=== PATIENT | female | born 1980 | race Caucasian/White ===

== ENCOUNTER 2018-02-22 09:25 | Emergency (ER) | payer MEDICAID ==
--- NOTE | 2018-02-22 09:46 | Emergency Department Record ---
History of Present Illness - General Chief Complaint: Ankle/Foot Injury Stated Complaint: RT ANKLE INJURY Time Seen by Provider: 02/22/18 09:41 Source: Patient, RN notes reviewed Mode of Arrival: Ambulatory - History of Present Illness Initial Comments: patient twisted right ankle and fell 2 daysa go and it swelled and she has been walking on it. No other injuries MD Complaint: Ankle injury Onset/Timin -: Days(s) Type of Injury: Other Place: Home Severity: Moderate Severity scale (1-10): 8 Improves With: Nothing Worsens With: Nothing, Weight bearing Associated Symptoms: Swelling, Ambulatory - Related Data Previous Rx's Medication Instructions Recorded Naproxen [Naprosyn] 500 mg PO BID #20 tablet 02/22/18 Allergies Allergy/AdvReac Type Severity Reaction Status Date / Time amoxicillin [Amoxicillin] Allergy Intermediate HIVES Unverified 04/02/16 10:20 rofecoxib [From Vioxx] Allergy Intermediate HIVES Unverified 04/02/16 10:20 venlafaxine HCl Allergy Intermediate VOMITING Unverified 04/02/16 10:20 [From Effexor] Travel Screening - Travel/Exposure Within Last 30 Days Have you traveled within the last 30 days?: No Review of Systems Reviewed: No additional complaints except as noted below Constitutional: Reports: As per HPI. Denies: Chills, Fever, Malaise, Night sweats, Weakness, Weight change Eyes: Reports: As per HPI. Denies: Eye discharge, Eye pain, Photophobia, Vision change ENT: Reports: As per HPI. Denies: Congestion, Dental pain, Ear pain, Epistaxis , Hearing loss, Throat pain Respiratory: Reports: As per HPI. Denies: Cough, Dyspnea, Hemoptysis, Stridor, Wheezes Cardiovascular: Reports: As per HPI. Denies: Arrhythmia, Chest pain, Dyspnea on exertion, Edema, Murmurs, Orthopnea, Palpitations, Paroxysmal nocturnal dyspnea, Rheumatic Fever, Syncope Endocrine: Reports: As per HPI. Denies: Fatigue, Heat or cold intolerance, Polydipsia, Polyuria Gastrointestinal: Reports: As per HPI. Denies: Abdominal pain, Constipation, Diarrhea, Hematemesis, Hematochezia, Melena, Nausea, Vomiting Genitourinary: Reports: As per HPI. Denies: Abnormal menses, Discharge, Dyspareunia, Dysuria, Frequency, Hematuria, Incontinence, Retention, Urgency Musculoskeletal: Reports: As per HPI. Denies: Arthralgia, Back pain, Gout, Joint swelling, Myalgia, Neck pain Skin: Reports: As per HPI. Denies: Bruising, Change in color, Change in hair/ nails, Lesions, Pruritus, Rash Neurological: Reports: As per HPI. Denies: Abnormal gait, Confusion, Headache, Numbness, Paresthesias, Seizure, Tingling, Tremors, Vertigo, Weakness Psychiatric: Reports: As per HPI. Denies: Anxiety, Auditory hallucinations, Depression, Homicidal thoughts, Suicidal thoughts, Visual hallucinations Hematological/Lymphatic: Reports: As per HPI. Denies: Anemia, Blood Clots, Easy bleeding, Easy bruising, Swollen glands Past Medical History - SOCIAL HISTORY Smoking Status: Heavy tobacco smoker (>10/day) - RESPIRATORY Hx Respiratory Disorders: Yes Hx Asthma: Yes - CARDIOVASCULAR Hx Cardio Disorders: Yes Hx Hypertension: Yes - NEURO Hx Neuro Disorders: No - GI Hx GI Disorders: Yes Hx Reflux: Yes - Hx Genitourinary Disorders: No - ENDOCRINE Hx Endocrine Disorders: No - MUSCULOSKELETAL Hx Musculoskeletal Disorders: Yes Hx Back Injury: Yes - PSYCH Hx Psych Problems: Yes Hx Anxiety: Yes Hx Depression: Yes - HEMATOLOGY/ONCOLOGY Hx Hematology/Oncology Disorders: No Family Medical History Any Significant Family History?: Yes Hx Diabetes: Father, Mother, Grandparents Hx HTN: Father, Mother, Grandparents Hx Stroke: Grandparents Physical Exam - General General Appearance: Alert, Oriented x3, Cooperative, Mild distress - Head Head exam: Normal inspection - Eye Eye exam: Normal appearance, PERRL Pupils: Normal accommodation - ENT ENT exam: Normal exam, Mucous membranes moist, Normal external ear exam, Normal orophraynx, TM's normal bilaterally Ear exam: Normal external inspection. negative: External canal tenderness Nasal Exam: Normal inspection. negative: Discharge, Sinus tenderness Mouth exam: Normal external inspection, Tongue normal Teeth exam: Normal inspection. negative: Dental caries Throat exam: Normal inspection. negative: Tonsillar erythema, Tonsillar exudate - Neck Neck exam: Normal inspection, Full ROM. negative: Tenderness - Respiratory Respiratory exam: Normal lung sounds bilaterally. negative: Respiratory distress - Cardiovascular Cardiovascular Exam: Regular rate, Normal rhythm, Normal heart sounds - GI/Abdominal GI/Abdominal exam: Soft, Normal bowel sounds. negative: Tenderness - Rectal Rectal exam: Deferred - exam: Deferred - Extremities Extremities exam: Joint swelling, Normal capillary refill, Tenderness (right ankle pain) - Back Back exam: Reports: Normal inspection, Full ROM. Denies: Muscle spasm, Rash noted, Tenderness - Neurological Neurological exam: Alert, Normal gait, Oriented X3, Reflexes normal - Psychiatric Psychiatric exam: Normal affect, Normal mood - Skin Skin exam: Dry, Intact, Normal color, Warm Course Vital Signs 02/22/18 09:32 Temperature 98.3 F Pulse Rate 79 Respiratory 20 Rate Blood Pressure 143/96 Pulse Ox 96 Medical Decision Making - Data Complexity MDM Data: X-Ray Ordered and/or Reviewed (xray negative, some degenerative changes) Disposition Clinical Impression: Sprain of ankle Qualifiers: Encounter type: initial encounter Involved ligament of ankle: anterior talofibular ligament Laterality: right Qualified Code(s): S93.491A - Sprain of other ligament of right ankle, initial encounter Disposition: Home, Self-Care Condition: (1) Good Instructions: Ankle Sprain (ED) Additional Instructions: follow up with family Dr in 6 to 10 days Prescriptions: Naproxen [Naprosyn] 500 mg PO BID #20 tablet Forms: Patient Portal Access Time of Disposition: 10:36 Quality - Quality Measures Quality Measures: N/A - Blood Pressure Screening Does Patient Have Any of the Following: No Blood Pressure Classification: Hypertensive Reading Systolic Measurement: 143 Diastolic Measurement: 96 Screening for High Blood Pressure: < Pre-Hypertensive BP, F/U Documented > [ G8950] Pre-Hypertensive Follow-up Interventions: Referral to alternative/primary care provider.
--- NOTE | 2018-02-23 09:01 | RADIOLOGY REPORT ---
EXAM: RIGHT ANKLE HISTORY: INJURY. TECHNIQUE: Three views of the right ankle were performed. FINDINGS: No evidence of fracture or dislocation. There is severe soft tissue swelling. There is a small calcaneal spur. IMPRESSION: NO EVIDENCE OF ACUTE FRACTURE OR DISLOCATION. THERE IS SEVERE SOFT TISSUE SWELLING. JOB NUMBER: [id number] [facility]
== END 2018-02-22 10:44 | disposition home or self-care (01) ==
LOC: ER 09:25
DX: S93.491A Sprain of other ligament of right ankle, initial encounter (principal); X50.1XXA Overexertion from prolonged static or awkward postures, initial encounter; Y92.009 Unspecified place in unspecified non-institutional (private) residence as the place of occurrence of the external cause; F17.210 Nicotine dependence, cigarettes, uncomplicated; I10 Essential (primary) hypertension
CPT/HCPCS: 99283

== ENCOUNTER 2018-11-01 09:28 | Emergency (ER) | payer MEDICAID ==
--- NOTE | 2018-11-01 09:40 | Emergency Department Record ---
History of Present Illness - General Chief Complaint: Cough Stated Complaint: COUGH Time Seen by Provider: 11/01/18 09:31 Source: Patient, RN notes reviewed Mode of Arrival: Ambulatory - History of Present Illness MD Complaint: Cough, Nasal congestion, Sore throat Onset/Timin -: Days(s) Severity scale (1-10): 5 Consistency: Constant - Related Data Previous Rx's Medication Instructions Recorded Azithromycin 250 mg PO DAILY #6 tablet 11/01/18 Prednisone [Prednisone 10Mg] 10 mg PO ASDIR #30 tab 11/01/18 Allergies Allergy/AdvReac Type Severity Reaction Status Date / Time amoxicillin [Amoxicillin] Allergy Intermediate HIVES Unverified 04/02/16 10:20 rofecoxib [From Vioxx] Allergy Intermediate HIVES Unverified 04/02/16 10:20 venlafaxine HCl Allergy Intermediate VOMITING Unverified 04/02/16 10:20 [From Effexor] Travel Screening - Travel/Exposure Within Last 30 Days Have you traveled within the last 30 days?: No Review of Systems Reviewed: No additional complaints except as noted below Constitutional: Reports: As per HPI. Denies: Chills, Fever, Malaise, Night sweats, Weakness, Weight change Eyes: Reports: As per HPI. Denies: Eye discharge, Eye pain, Photophobia, Vision change ENT: Reports: As per HPI, Congestion, Throat pain. Denies: Dental pain, Ear pain, Epistaxis, Hearing loss Respiratory: Reports: As per HPI, Cough, Wheezes. Denies: Dyspnea, Hemoptysis, Stridor Cardiovascular: Reports: As per HPI. Denies: Arrhythmia, Chest pain, Dyspnea on exertion, Edema, Murmurs, Orthopnea, Palpitations, Paroxysmal nocturnal dyspnea, Rheumatic Fever, Syncope Endocrine: Reports: As per HPI. Denies: Fatigue, Heat or cold intolerance, Polydipsia, Polyuria Gastrointestinal: Reports: As per HPI. Denies: Abdominal pain, Constipation, Diarrhea, Hematemesis, Hematochezia, Melena, Nausea, Vomiting Genitourinary: Reports: As per HPI. Denies: Abnormal menses, Discharge, Dyspareunia, Dysuria, Frequency, Hematuria, Incontinence, Retention, Urgency Musculoskeletal: Reports: As per HPI. Denies: Arthralgia, Back pain, Gout, Joint swelling, Myalgia, Neck pain Skin: Reports: As per HPI. Denies: Bruising, Change in color, Change in hair/nails, Lesions, Pruritus, Rash Neurological: Reports: As per HPI. Denies: Abnormal gait, Confusion, Headache, Numbness, Paresthesias, Seizure, Tingling, Tremors, Vertigo, Weakness Psychiatric: Reports: As per HPI. Denies: Anxiety, Auditory hallucinations, Depression, Homicidal thoughts, Suicidal thoughts, Visual hallucinations Hematological/Lymphatic: Reports: As per HPI. Denies: Anemia, Blood Clots, Easy bleeding, Easy bruising, Swollen glands Past Medical History - SOCIAL HISTORY Smoking Status: Heavy tobacco smoker (>10/day) - RESPIRATORY Hx Respiratory Disorders: Yes Hx Asthma: Yes Hx COPD: Yes - CARDIOVASCULAR Hx Cardio Disorders: Yes Hx Hypertension: Yes - NEURO Hx Neuro Disorders: No - GI Hx GI Disorders: Yes Hx Reflux: Yes - Hx Genitourinary Disorders: No - ENDOCRINE Hx Endocrine Disorders: No - MUSCULOSKELETAL Hx Musculoskeletal Disorders: Yes Hx Back Injury: Yes - PSYCH Hx Psych Problems: Yes Hx Anxiety: Yes Hx Depression: Yes - HEMATOLOGY/ONCOLOGY Hx Hematology/Oncology Disorders: No Family Medical History Any Significant Family History?: Yes Hx Diabetes: Father, Mother, Grandparents Hx HTN: Father, Mother, Grandparents Hx Stroke: Grandparents Physical Exam - General General Appearance: Alert, Oriented x3, Cooperative, No acute distress - Head Head exam: Normal inspection - Eye Eye exam: Normal appearance, PERRL Pupils: Normal accommodation - ENT ENT exam: Normal exam, Mucous membranes moist, Normal external ear exam, Normal orophraynx, TM's normal bilaterally Ear exam: Normal external inspection. negative: External canal tenderness Nasal Exam: Normal inspection. negative: Discharge, Sinus tenderness Mouth exam: Normal external inspection, Tongue normal Teeth exam: Normal inspection. negative: Dental caries Throat exam: Normal inspection. negative: Tonsillar erythema, Tonsillar exudate - Neck Neck exam: Normal inspection, Full ROM. negative: Tenderness - Respiratory Respiratory exam: Normal lung sounds bilaterally, Other (wheezy cough). negative: Respiratory distress - Cardiovascular Cardiovascular Exam: Regular rate, Normal rhythm, Normal heart sounds - GI/Abdominal GI/Abdominal exam: Soft, Normal bowel sounds. negative: Tenderness - Rectal Rectal exam: Deferred - exam: Deferred - Extremities Extremities exam: Normal inspection, Full ROM, Normal capillary refill. negative: Tenderness - Back Back exam: Reports: Normal inspection, Full ROM. Denies: Muscle spasm, Rash noted, Tenderness - Neurological Neurological exam: Alert, Normal gait, Oriented X3, Reflexes normal - Psychiatric Psychiatric exam: Normal affect, Normal mood - Skin Skin exam: Dry, Intact, Normal color, Warm Course Vital Signs 11/01/18 09:31 Temperature 98 F Pulse Rate 83 Respiratory 18 Rate Blood Pressure 144/106 Pulse Ox 98 - Reevaluation(s) Reevaluation #1: off work today 11/01/18 09:54 Disposition Clinical Impression: Bronchitis Disposition: Home, Self-Care Condition: (1) Good Instructions: Acute Bronchitis (ED), COPD (Chronic Obstructive Pulmonary Disease) (ED) Additional Instructions: fluids stop cigs use inhalers start azithromycin follow up with family dr in 3 days Prescriptions: Azithromycin 250 mg PO DAILY #6 tablet Prednisone [Prednisone 10Mg] 10 mg PO ASDIR #30 tab Forms: Patient Portal Access Time of Disposition: 09:54 Quality - Quality Measures Quality Measures: N/A - Blood Pressure Screening Does Patient Have Any of the Following: No Blood Pressure Classification: Hypertensive Reading Systolic Measurement: 144 Diastolic Measurement: 106 Screening for High Blood Pressure: < First Hypertensive BP, F/U Documented > [ G8950] Pre-Hypertensive Follow-up Interventions: Referral to alternative/primary care provider. First Hypertensive Follow-up Interventions: Referral to alternative/primary care provider.
[2018-11-01] MEDS ORDERED: METHYLPREDNISOLONE 80MG/VIAL IM ONE (09:46)
[2018-11-01] MEDS ORDERED: AZITHROMYCIN 500 MG TABLET PO ONE (09:47)
== END 2018-11-01 10:24 | disposition home or self-care (01) ==
LOC: ER 09:28
DX: J20.9 Acute bronchitis, unspecified (principal); J44.9 Chronic obstructive pulmonary disease, unspecified; I10 Essential (primary) hypertension; F17.210 Nicotine dependence, cigarettes, uncomplicated
CPT/HCPCS: 87880; 96372; 99284; J1040

== ENCOUNTER 2019-05-06 09:19 | Emergency (ER) | payer MEDICAID ==
[2019-05-06] MEDS ORDERED: METHYLPREDNISOLONE PF 125MG/VIAL IM ONE (09:36)
--- NOTE | 2019-05-06 09:39 | Emergency Department Record ---
History of Present Illness - General Chief Complaint: Cough Stated Complaint: COUGHING Time Seen by Provider: 05/06/19 09:31 Source: Patient Mode of Arrival: Ambulatory Limitations: No limitations - History of Present Illness Initial Comments: The patient is here due to a worsening cough and congestion over the last 5 days. She has had some SOB at times which is worse at night. The patient denies any fever, sputum production, CP, RODRIGUEZ, or vomiting. She does have a hx of COPD and does use a Nebulizer at home. MD Complaint: Cough, Rhinorrhea Onset/Timin -: Days(s) - Related Data Home Medications Medication Instructions Recorded Confirmed Last Taken Hydrocodone/Acetaminophen [[place] 1 each PO Q6H 05/06/19 05/06/19 Unknown 5-325 Tablet] Previous Rx's Medication Instructions Recorded Doxycycline Monohydrate [Mondoxyne 100 mg PO BID 7 Days #14 capsule 05/06/19 Nl] Prednisone [Prednisone 20Mg] 40 mg PO DAILY #8 tab 05/06/19 Allergies Allergy/AdvReac Type Severity Reaction Status Date / Time amoxicillin [Amoxicillin] Allergy Intermediate HIVES Verified 05/06/19 09:35 rofecoxib [From Vioxx] Allergy Intermediate HIVES Verified 05/06/19 09:35 venlafaxine HCl Allergy Intermediate VOMITING Verified 05/06/19 09:35 [From Effexor] Travel Screening - Travel/Exposure Within Last 30 Days Have you traveled within the last 30 days?: No - Travel/Exposure Within Last Year Have you traveled outside the [place] in the last year?: No - Additonal Travel Details Have you been exposed to anyone with a communicable illness?: No Review of Systems Constitutional: Denies: Chills, Fever Eyes: Denies: Eye discharge ENT: Reports: Congestion Respiratory: Reports: Cough, Dyspnea. Denies: Hemoptysis Cardiovascular: Denies: Chest pain Past Medical History - SOCIAL HISTORY Smoking Status: Heavy tobacco smoker (>10/day) Alcohol Use: Rare Drug Use: None - RESPIRATORY Hx Respiratory Disorders: Yes Hx COPD: Yes - CARDIOVASCULAR Hx Cardio Disorders: Yes Hx Hypertension: Yes - NEURO Hx Neuro Disorders: No - GI Hx GI Disorders: Yes Hx Reflux: Yes - Hx Genitourinary Disorders: No - ENDOCRINE Hx Endocrine Disorders: No - MUSCULOSKELETAL Hx Musculoskeletal Disorders: Yes Hx Back Injury: Yes - PSYCH Hx Psych Problems: Yes Hx Anxiety: Yes Hx Depression: Yes - HEMATOLOGY/ONCOLOGY Hx Hematology/Oncology Disorders: No Family Medical History Any Significant Family History?: No Hx Diabetes: Father, Mother, Grandparents Hx HTN: Father, Mother, Grandparents Hx Stroke: Grandparents Physical Exam - General General Appearance: Alert, Oriented x3, Cooperative, No acute distress - Head Head exam: Atraumatic, Normocephalic - Eye Eye exam: Normal appearance, PERRL - ENT Throat exam: Normal inspection. negative: Tonsillar erythema, Tonsillar exudate - Neck Neck exam: Normal inspection, Full ROM. negative: Tenderness - Respiratory Respiratory exam: Normal lung sounds bilaterally. negative: Accessory muscle use, Respiratory distress, Rhonchi, Stridor, Wheezes - Cardiovascular Cardiovascular Exam: Regular rate, Normal rhythm, Normal heart sounds - GI/Abdominal GI/Abdominal exam: Soft, Normal bowel sounds. negative: Tenderness - Extremities Extremities exam: Normal inspection, Full ROM, Normal capillary refill. negative: Tenderness - Neurological Neurological exam: Alert. negative: Motor sensory deficit Course Vital Signs 05/06/19 09:25 Temperature 98.5 F Pulse Rate 95 H Respiratory 18 Rate Blood Pressure 157/109 Pulse Ox 95 - Reevaluation(s) Reevaluation #1: The patient is doing very well and has clear lungs on exam. I did discuss the CXR report and the need for F/U for a CT with the patient and she assures me she will see her PCP for this. I also did give the patient the CXR report to bring to her doctor. Due to the probable infiltrate we will place the patient on Doxycycline and Prednisone for home. 05/06/19 10:38 Reevaluation #2: I have made multiple attempts to contact the patient's PCP Dr. Galaviz without success. The office was unwilling to take a report on the patient and they did try to contact the doctor to have her call back here but have not been successful. The office is now closed for the day. I did give the patient the xr ay report and did stress the importance of F/U to make sure she did not have an early lung CA. The patient understood and stated she would F/U. 05/06/19 12:03 Medical Decision Making - Data Complexity MDM Data: Labs Ordered and/or Reviewed, X-Ray Ordered and/or Reviewed - Lab Data Result diagrams: 05/06/19 09:40 05/06/19 09:40 - Radiology Data Radiology results: Report reviewed (CXR: R perihilar opacity, Rec F/U CT as outpatient.) Disposition Disposition: Discharge Clinical Impression: Pneumonia Qualifiers: Pneumonia type: due to unspecified organism Laterality: right Lung location: unspecified part of lung Qualified Code(s): J18.9 - Pneumonia, unspecified organism Disposition: Home, Self-Care Condition: (2) Stable Instructions: Pneumonitis (ED) Additional Instructions: Please continue to use your Neb at home and take the Doxycycline and Prednisone as directed. Please see your family doctor next week for recheck and to have the chest CT ordered as an outpatient. Please bring the xray report to the appointment. Prescriptions: Doxycycline Monohydrate [Mondoxyne Nl] 100 mg PO BID 7 Days #14 capsule Prednisone [Prednisone 20Mg] 40 mg PO DAILY #8 tab Forms: Patient Portal Access Time of Disposition: 10:41 Quality - Quality Measures Quality Measures: N/A - Blood Pressure Screening View Details: Yes Does Patient Have Any of the Following: No Blood Pressure Classification: Hypertensive Reading Systolic Measurement: 146 Diastolic Measurement: 95 Screening for High Blood Pressure: < First Hypertensive BP, F/U Documented > [G8950] First Hypertensive Follow-up Interventions: Referral to alternative/primary care provider.
[2019-05-06 09:53] LABS: ABSOLUTE NEUTROPHIL COUNT 4.58; BASO % 0.3 % (0-6); EOS % 1.6 % (0-6); GRAN % 64.5 % (47-80); HEMATOCRIT 43.3 % (35.0-47.0); HEMOGLOBIN 13.7 gm/dl (11.6-16.0); LYMPH % 23.7 % (16-45); MEAN CELL VOLUME 89.6 fl (81-97); MEAN CORPUSCULAR HEMOGLOBIN 28.4 pg (27-33); MEAN CORPUSCULAR HGB CONC 31.6 g/dl (32-36); MEAN PLATELET VOLUME 10.8 fl (7.4-10.4); MONO % 9.9 % (0-9); PLATELET COUNT 210 K/uL (130-400); RED BLOOD COUNT 4.83 M/uL (3.80-5.40); RED CELL DISTRIBUTION WIDTH 14.3 % (11.5-14.5); WHITE BLOOD COUNT W/O DIFF 7.1 K/uL (4.2-12.2)
[2019-05-06 10:02] LABS: BLOOD UREA NITROGEN 8 mg/dL (6-20); CREATININE 0.5 mg/dL (0.5-0.9); EST GLOMERULAR FILTRATION RATE > 60 mL/min
[2019-05-06 10:03] LABS: TOTAL PROTEIN 7.2 g/dL (6.6-8.7)
[2019-05-06 10:05] LABS: GLUCOSE,RANDOM 107 mg/dL (74-109)
[2019-05-06 10:07] LABS: ALT/SGPT 13 U/L (<33)
[2019-05-06 10:08] LABS: ALB/GLOB RATIO 1.1 (1.1-1.8); ALBUMIN 3.8 g/dL (4.0-5.0); ALKALINE PHOSPHATASE 65 U/L (35-104); AST/SGOT 10 U/L (10.0-35.0)
--- NOTE | 2019-05-06 10:25 | RADIOLOGY REPORT ---
EXAMINATION: Two View Chest Radiographs EXAM DATE: 05/06/2019 10:00 AM TECHNIQUE: Frontal and lateral views INDICATION: cough COMPARISON: 08/12/2015 ENCOUNTER: Not applicable FINDINGS: Cardiomediastinal structures stable. Right perihilar opacity. Follow-up CT of the thorax as clinicall y directed. No pulmonary consolidation. No pneumothorax or pleural effusion. IMPRESSION: Right perihilar opacity. Follow-up CT of the thorax NOTE: There is a follow-up recommendation in this report. Dictated by: Sixto Hillman MD on 05/06/2019 10:21 AM. .
--- NOTE | 2019-05-07 10:39 | Emergency Department Record ---
History of Present Illness - General Chief Complaint: Cough Stated Complaint: COUGHING Time Seen by Provider: 05/06/19 09:31 Source: Patient Mode of Arrival: Ambulatory Limitations: No limitations - History of Present Illness Onset/Timin -: Days(s) - Related Data Home Medications Medication Instructions Recorded Confirmed Last Taken Hydrocodone/Acetaminophen [[place] 1 each PO Q6H 05/06/19 05/06/19 Unknown 5-325 Tablet] Previous Rx's Medication Instructions Recorded Doxycycline Monohydrate [[place] 100 mg PO BID 7 Days #14 capsule 05/06/19 Nl] Prednisone [Prednisone 20Mg] 40 mg PO DAILY #8 tab 05/06/19 Allergies Allergy/AdvReac Type Severity Reaction Status Date / Time amoxicillin [Amoxicillin] Allergy Intermediate HIVES Verified 05/06/19 09:35 rofecoxib [From Vioxx] Allergy Intermediate HIVES Verified 05/06/19 09:35 venlafaxine HCl Allergy Intermediate VOMITING Verified 05/06/19 09:35 [From Effexor] Travel Screening - Travel/Exposure Within Last 30 Days Have you traveled within the last 30 days?: No - Travel/Exposure Within Last Year Have you traveled outside the [place] in the last year?: No - Additonal Travel Details Have you been exposed to anyone with a communicable illness?: No Review of Systems Constitutional: Denies: Chills, Fever Eyes: Denies: Eye discharge ENT: Reports: Congestion Respiratory: Reports: Cough, Dyspnea. Denies: Hemoptysis Cardiovascular: Denies: Chest pain Past Medical History - SOCIAL HISTORY Smoking Status: Heavy tobacco smoker (>10/day) Alcohol Use: Rare Drug Use: None - RESPIRATORY Hx Respiratory Disorders: Yes Hx COPD: Yes - CARDIOVASCULAR Hx Cardio Disorders: Yes Hx Hypertension: Yes - NEURO Hx Neuro Disorders: No - GI Hx GI Disorders: Yes Hx Reflux: Yes - Hx Genitourinary Disorders: No - ENDOCRINE Hx Endocrine Disorders: No - MUSCULOSKELETAL Hx Musculoskeletal Disorders: Yes Hx Back Injury: Yes - PSYCH Hx Psych Problems: Yes Hx Anxiety: Yes Hx Depression: Yes - HEMATOLOGY/ONCOLOGY Hx Hematology/Oncology Disorders: No Family Medical History Any Significant Family History?: No Hx Diabetes: Father, Mother, Grandparents Hx HTN: Father, Mother, Grandparents Hx Stroke: Grandparents Physical Exam - General Limitations: No limitations Course Vital Signs 05/06/19 05/06/19 09:25 10:50 Temperature 98.5 F 98.5 F Pulse Rate 95 H 103 H Respiratory 18 18 Rate Blood Pressure 157/109 146/95 Pulse Ox 95 95 - Reevaluation(s) Reevaluation #1: I did discuss the case with the patient's PCP and she did assure she would F/U with the patient for an appointment and repeat films. 05/07/19 10:38 Medical Decision Making - Lab Data Result diagrams: 05/06/19 09:40 05/06/19 09:40 Lab Results 05/06/19 05/06/19 05/06/19 Range/Units 09:40 09:40 09:40 WBC 7.1 (4.2-12.2) K/uL RBC 4.83 (3.80-5.40) M/uL Hgb 13.7 (11.6-16.0) gm/dl Hct 43.3 (35.0-47.0) % MCV 89.6 (81-97) fl MCH 28.4 (27-33) pg MCHC 31.6 L (32-36) g/dl RDW 14.3 (11.5-14.5) % Plt Count 210 (130-400) K/uL MPV 10.8 H (7.4-10.4) fl Gran % 64.5 (47-80) % Lymphocytes % 23.7 (16-45) % Monocytes % 9.9 H (0-9) % Eosinophils % 1.6 (0-6) % Basophils % 0.3 (0-6) % Absolute Neutrophils 4.58 Sodium 138 (136-145) mmol/L Potassium 4.0 (3.4-4.5) mmol/L Chloride 105 (98-107) mmol/L Carbon Dioxide 20.0 L (22-29) mmol/L Anion Gap 13.0 (7-16) BUN 8 (6-20) mg/dL Creatinine 0.5 (0.5-0.9) mg/dL Estimated GFR > 60 mL/min Random Glucose 107 (74-109) mg/dL Calcium 8.7 (8.6-10.0) mg/dL Total Bilirubin 0.40 (0.2-1.0) mg/dL AST 10 (10.0-35.0) U/L ALT 13 (<33) U/L Alkaline Phosphatase 65 (35-104) U/L Total Protein 7.2 (6.6-8.7) g/dL Albumin 3.8 L (4.0-5.0) g/dL Globulin 3.4 (1.4-4.8) gm/dL Albumin/Globulin Ratio 1.1 (1.1-1.8) Procalcitonin 0.025 ng/mL Disposition Clinical Impression: Pneumonia Qualifiers: Pneumonia type: due to unspecified organism Laterality: right Lung location: unspecified part of lung Qualified Code(s): J18.9 - Pneumonia, unspecified organism Disposition: Home, Self-Care Condition: (2) Stable Instructions: Pneumonitis (ED) Additional Instructions: Please continue to use your Neb at home and take the Doxycycline and Prednisone as directed. Please see your family doctor next week for recheck and to have the chest CT ordered as an outpatient. Please bring the xray report to the appointment. Prescriptions: Doxycycline Monohydrate [Mondoxyne Nl] 100 mg PO BID 7 Days #14 capsule Prednisone [Prednisone 20Mg] 40 mg PO DAILY #8 tab Forms: Patient Portal Access Quality - Quality Measures Quality Measures: N/A - Blood Pressure Screening View Details: Yes Does Patient Have Any of the Following: Active Dx of HTN Blood Pressure Classification: Hypertensive Reading Systolic Measurement: 146 Diastolic Measurement: 95 Screening for High Blood Pressure: Patient Exclusion, Hx of HTN [G9744]
== END 2019-05-06 10:50 | disposition home or self-care (01) ==
LOC: ER 09:19
DX: J18.9 Pneumonia, unspecified organism (principal); J44.9 Chronic obstructive pulmonary disease, unspecified; F17.210 Nicotine dependence, cigarettes, uncomplicated; I10 Essential (primary) hypertension
CPT/HCPCS: 71046; 80053; 84145; 85025; 96372; 99284; J2930